=== PATIENT | male | born 1985 | race Caucasian/White ===

== ENCOUNTER 2017-03-27 11:06 | Emergency (ER) | payer OTHER ==
[2017-03-27] MEDS ORDERED: Lidocaine 1% 30 ML SDV INJECT ONE (11:24)
[2017-03-27 11:42] VITALS: BP 144/99
--- NOTE | 2017-03-27 12:23 | EDM.PDOC ---
ED HPI GENERAL MEDICAL PROBLEM - General Chief Complaint: Upper Extremity Injury/Pain Stated Complaint: LACERATION Time Seen by Provider: 03/27/17 11:19 Source of Information: Reports: Patient History Limitations: Reports: Language Barrier (patient is deaf and nearly mute. difficult communication. cooperative) - History of Present Illness INITIAL COMMENTS - FREE TEXT/NARRATIVE: Patient presents with nearly circumferential laceration of his right thumb and complete nail avulsion of the same. 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 He has no other complaints. Rates pain a 3-4 of 10. He has no other complaints today. Onset: Today Onset Date: 03/27/17 Onset Time: 10:30 Location: Reports: Upper Extremity, Right Severity: Mild Improves with: Reports: None Worsens with: Reports: None Context: Reports: Other (work) Associated Symptoms: Reports: No Other Symptoms Right 1-Thumb Pain Score (Numeric/FACES): 8 - Related Data Allergies Allergy/AdvReac Type Severity Reaction Status Date / Time No Known Allergies Allergy Verified 03/27/17 11:34 Home Meds: Home Meds . [No Known Home Meds] 03/27/17 [History] Past Medical History - Past Health History Medical/Surgical History: Denies Medical/Surgical History HEENT History: Reports: Hard of Hearing, Other (See Below) Other HEENT History: deaf since . Has hearing aide to R ear Social & Family History - Tobacco Use Smoking Status *Q: Never Smoker - Recreational Drug Use Recreational Drug Use: No Review of Systems - Review of Systems Review Of Systems: ROS reveals no pertinent complaints other than HPI. Trauma Exam - Physical Exam Exam: See Below Exam Limited By: Other (patient is very hard of hearing as well as mute) General Appearance: Reports: Alert, WD/WN, Mild Distress Head: Reports: Atraumatic, Normocephalic Eyes: Bilateral Eye: EOMI Extremities: Pain with Movement, Other (right distal thumb has 6.5 cm laceration ; nearly circumferential. 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 As Tested, No Motor/Sensory Deficits, Oriented x 3 ED TRAUMA EXTREMITY PROCEDURES - Laceration/Wound Repair Right Distal Finger Lac/wound length in cm: 6.5 (injury to right distal thumb) Appearance: superficial, moderately contaminated Distal NVT: neuro & vascular intact, no tendon injury Anesthetic Type: digital Local anesthesia - Lidocaine (Xylocaine): 1% plain Local anesthetic volume: other (12 ml) Skin prep: chlorhexidine (hibiciens) Saline irrigation (cc's): 50 Exploration/Debridement/Repair: wound explored, explored to base, minimal debridement, no foreign material found Closed with: sutures Suture size: 4-0 Suture type: nylon, interrupted (1 interrupted in addition to running/continuous ), Running Drain placement: No Sterile dressing applied: nurse Tetanus status addressed: Yes Complications: No Course - Vital Signs Last Recorded V/S: Last Vital Signs Temp 36.8 C 03/27/17 11:10 Pulse 68 03/27/17 11:10 Resp 16 03/27/17 11:10 BP 144/99 H 03/27/17 11:10 Pulse Ox - Orders/Labs/Meds Orders: Active Orders 24 hr Category Date Time Status Hand 2V Rt [CR] Stat Exams 03/27/17 11:20 Ordered Meds: Medications Discontinued Medications Generic Name Dose Route Start Last Admin Trade Name Rubia PRN Reason Stop Dose Admin Lidocaine HCl 30 ml 03/27/17 11:24 03/27/17 11:55 Xylocaine-Mpf 1% INJECT 03/27/17 11:25 30 ml ONETIME ONE Administration - Radiology Interpretation Free Text/Narrative:: x-ray negative for tuft fracture or foreign object - Re-Assessments/Exams Free Text/Narrative Re-Assessment/Exam: 03/27/17 12:31 Patient given digital block of thumb with suture repair. Tolerated well and without complication Departure - Departure Time of Disposition: 12:33 Disposition: Home, Self-Care 01 Condition: good Clinical Impression: Laceration of right thumb without complication, Nail avulsion, finger - Discharge Information Instructions: Wound Infection, [id number], Laceration Care, Adult, Easy-to- Read Additional Instructions: Take tylenol and ibuprofen for pain relief Remove sutures in 10-14 days Wash with soap and water Leave bandage on for 48 hours May shower, but DO NOT submerge your thumb in any water including dish water, bath tub, swimming pool, hot tub, etc. Please read the wound infection instructions and call if you develop any of these signs or symptoms: fever over 101.5F, increased swelling, redness, any pus like drainage, red streak going down your arm. Please follow up with your primary as needed or call the ED with questions or concerns. - Problem List & Annotations (1) Laceration of right thumb without complication SNOMED Code(s): 192204747 Code(s): S61.011A - LACERATION W/O FB OF RIGHT THUMB W/O DAMAGE TO NAIL, INIT Status: Acute Priority: Low Qualifiers: Encounter type: initial encounter Qualified Code(s): S61.011A - Laceration without foreign body of right thumb without damage to nail, initial encounter (2) Nail avulsion, finger SNOMED Code(s): 212024452 Code(s): S61.309A - UNSP OPEN WOUND OF UNSP FINGER W DAMAGE TO NAIL, INIT ENCNTR Status: Acute Priority: Low Qualifiers: Encounter type: initial encounter Qualified Code(s): S61.309A - Unspecified open wound of unspecified finger with damage to nail, initial encounter - Problem List Review Problem List Initiated/Reviewed/Updated: Yes - My Orders Last 24 Hours: My Active Orders 03/27/17 11:20 Hand 2V Rt [CR] Stat - Assessment/Plan Last 24 Hours: My Active Orders 03/27/17 11:20 Hand 2V Rt [CR] Stat Assessment:: right thumb nail avulsion right thumb laceration Plan: Take tylenol and ibuprofen for pain relief Remove sutures in 10-14 days Wash with soap and water Leave bandage on for 48 hours May shower, but DO NOT submerge your thumb in any water including dish water, bath tub, swimming pool, hot tub, etc. Please read the wound infection instructions and call if you develop any of these signs or symptoms: fever over 101.5F, increased swelling, redness, any pus like drainage, red streak going down your arm. Please follow up with your primary as needed or call the ED with questions or concerns.
== END 2017-03-27 12:35 | disposition home or self-care (01) ==
LOC: VM.ED 11:06
DX: S61.111A Laceration without foreign body of right thumb with damage to nail, initial encounter (principal); X58.XXXA Exposure to other specified factors, initial encounter; Y93.89 Activity, other specified
CPT/HCPCS: 12002; 73120-RT; 99283